=== PATIENT | male | born 1995 | race Caucasian/White ===

== ENCOUNTER 2017-05-24 12:07 | Emergency (ER) | payer OTHER ==
[~2017-05-24] VITALS: Ht 175.3 cm; Wt 140.6 kg
[2017-05-24] MEDS ORDERED: ROBAXIN-750750 MG PO (14:28)
[2017-05-24] MEDS ORDERED: IBUPROFEN600 MG PO (14:28)
== END 2017-05-24 14:40 | disposition home or self-care (01) ==
LOC: ED 12:07
DX: M54.5 Low back pain (principal); R62.50 Unspecified lack of expected normal physiological development in childhood; Z88.0 Allergy status to penicillin
CPT/HCPCS: 72100; 80053; 81001; 83690; 85025; 96374; 99283; J1885